=== PATIENT | female | born 1995 | race Caucasian/White ===

== ENCOUNTER 2016-05-30 11:22 | Emergency (ER) | payer OTHER ==
[~2016-05-30] VITALS: Ht 165.1 cm; Wt 77.1 kg
[~2016-05-30 11:22] MED LIST: CFT250 PO; FRRS300 PO; MTH2 PO; MTR600X PO; OXYC5TAB PO; PRENTAB26 PO
[2016-05-30 11:26] VITALS: TEMP 36.9; Ht 165.1 cm; Wt 77.1 kg
[2016-05-30 12:05] LABS: BASO % 0.2 %; BASO ABS # 0.02 K/uL (0-0.2); COMPLETE YES; EOS % 2.6 %; HEMATOCRIT 36.2 % (37-47); IG% 0.1 %; LYMPH % 29.9 %; LYMPH ABS # 2.55 K/uL (1.2-3.4); MEAN CELL VOLUME 73.3 fL (80-100); MEAN CORPUSCULAR HEMOGLOBIN 23.9 pg (25-34); MEAN CORPUSCULAR HGB CONC 32.6 g/dl (32-36); MEAN PLATELET VOLUME 9.9 fL (7.4-10.4); MONO % 6.5 %; NEUT % 60.7 %; PLATELET COUNT 346 K/uL (130-400); RED BLOOD COUNT 4.94 M/uL (4.2-5.4); WHITE BLOOD COUNT 8.52 K/uL (4.8-10.8)
[2016-05-30 12:14] LABS: INR 0.9 (0.9-1.1); PARTIAL THROMBOPLASTIN RATIO 1.2
[2016-05-30 12:22] LABS: BUN/CREATININE RATIO 18.6 (10-20); CALCIUM 8.4 mg/dl (8.5-10.1); CREATININE 0.7 mg/dl (0.60-1.20); POTASSIUM 3.9 mmol/L (3.5-5.1)
[2016-05-30 12:25] LABS: ALB/GLOB RATIO 0.9 (0.9-2)
[2016-05-30] MEDS ORDERED: SODIUM CHLORIDE 0.9% 1000ML 1,000 ML IV STA (12:25)
[2016-05-30] MEDS ORDERED: KETOROLAC TROMETHAMINE 30 MG/ML VIAL IV STA (12:25)
[2016-05-30] MEDS ORDERED: HYDROmorphone INJ 1 MG/ML SYR IV STA (12:25)
[2016-05-30] MEDS ORDERED: ONDANSETRON INJ 2 MG/ML 2 ML VIAL IV STA (12:25)
--- NOTE | 2016-05-30 12:26 | EMERGENCY ROOM VISIT NOTE ---
History Report prepared by Jn: Wayne Monk Under the Supervision of: Dr. Cornelius Amaya M.D. First contact with patient: 11:29 Chief Complaint: ED VAG BLEEDING Stated Complaint: MENSTRUAL History of Present Illness The patient is a 20 year old female who presents to the Emergency Room with complaints of worsening vaginal bleeding starting about 24 hours ago. She currently also complains of bilateral lower abdominal pain. She has taken Tylenol without relief. The patient had a and then a uterine artery embolism repair surgery in February. Her first period since the was in the beginning of May which was normal. About 24 hours ago, she started having a brown discharge. This morning, she started having vaginal bleeding which worsened over time. The blood is bright red. Today, she passed a golf- sized clot. She has been changing her pad every 2 hours. She denies chest pain, shortness of breath, or any other complaints. Source of History: patient Onset: about 24 hours ago Position: other (global) Quality: other (vaginal bleeding) Timing: worsening Modifying Factors (Relieving): tylenol (without relief) Associated Symptoms: + abdominal pain, No SOB, No chest pain Review of Systems See HPI for pertinent positives & negatives. A total of 10 systems reviewed and were otherwise negative. Past Medical & Surgical Medical Problems: (1) Acute blood loss as cause of postoperative anemia (2) LUMBAGO (3) possible labor at term (4) TOBACCO USE DISORDER Surgical Problems: (1) S/P section Family History Diabetes mellitus Kidney disease Kidney stones Seizures Thromboembolic disease Social History Smoking Status: Current Every Day Smoker Alcohol Use: none Drug Use: none Marital Status: single Occupation Status: unemployed Current/Historical Medications Scheduled PRN Oxycodone/Acetaminophen 5MG/325MG (Percocet 5MG/325MG), 1-2 TAB PO Q4H PRN for Pain Allergies Coded Allergies: Amoxicillin (Verified Allergy, Mild, RASH, 05/30/16) Fentanyl (Verified Allergy, Unknown, ., 05/30/16) Physical Exam Vital Signs Date Time Temp Pulse Resp B/P Pulse Ox O2 Delivery O2 Flow Rate FiO2 05/30/16 14:40 87 18 104/89 99 05/30/16 13:52 81 18 104/91 99 Room Air 05/30/16 12:20 71 18 102/63 99 Room Air 05/30/16 11:26 36.9 89 18 118/77 99 Room Air Physical Exam GENERAL: Patient is a healthy-appearing well-nourished HEAD: Normocephalic atraumatic EYES: Ocular movements intact pupils equal and react to light OROPHARYNX mucous membranes are moist no exudates present no erythema or edema present NECK: Supple no nuchal rigidity CHEST: Good equal expansion LUNGS: Clear and equal to auscultation CARDIAC: Normal S1 and S2 ABDOMEN: Soft nontender no guarding PELVIC EXAM: Minor amount of blood in the vaginal vault which appeared to be a clot. There is no chandeliers sign. BACK: No CVA tenderness EXTREMITIES: No pain upon palpation normal muscle strength in all groups no clubbing cyanosis or edema NEURO: Patient is following commands is answering questions appropriately. Alert and oriented x3 Cranial Nerves 2-12 grossly intact Medical Decision & Procedures ER Provider Diagnostic Interpretation: US results as stated below per my review and radiologist interpretation: EXAMINATION: PELVIC ULTRASOUND (transabdominal and endovaginal scanning) CLINICAL HISTORY: Diffuse pelvic pain COMPARISON STUDY: February 06, 2016 CT scan FINDINGS: The uterus measured 9.6 x 5.8 x 4.5 cm. The endometrial stripe measured 8 mm. The right ovary measured 36 x 29 x 23 mm. The left ovary measured 30 x 24 x 20 mm. There is no ultrasonographic evidence of ovarian torsion. It should be noted that ovarian torsion can be present with normal Doppler ultrasonographic findings. There is a small amount of free pelvic fluid, likely physiologic. IMPRESSION: 1. No ovarian or uterine masses identified 2. Small amount of free pelvic fluid likely physiologic Electronically signed by: Wilber Mcdowell M.D. 05/30/2016 2:04 PM Dictated Date/Time: 05/30/2016 2:03 PM Laboratory Results 05/30/16 11:45 Red Blood Count 4.94, Mean Corpuscular Volume 73.3, Mean Corpuscular Hemoglobin 23.9, Mean Corpuscular Hemoglobin Concent 32.6, Mean Platelet Volume 9.9, Neutrophils (%) (Auto) 60.7, Lymphocytes (%) (Auto) 29.9, Monocytes (%) (Auto) 6.5, Eosinophils (%) (Auto) 2.6, Basophils (%) (Auto) 0.2, Neutrophils # (Auto) 5.17, Lymphocytes # (Auto) 2.55, Monocytes # (Auto) 0.55, Eosinophils # (Auto) 0.22, Basophils # (Auto) 0.02 05/30/16 11:45 Test 05/30/16 11:40 05/30/16 11:45 05/30/16 12:30 Urine Color CATY Urine Appearance CLOUDY (CLEAR) Urine pH 5.5 (4.5-7.5) Urine Specific [place] 1.023 (1.000-1.030) Urine Protein NEG (NEG) Urine Glucose (UA) NEG (NEG) Urine Ketones NEG (NEG) Urine Occult Blood 3+ (NEG) Urine Nitrite NEG (NEG) Urine Bilirubin NEG (NEG) Urine Urobilinogen NEG (NEG) Urine Leukocyte Esterase TRACE (NEG) Urine WBC (Auto) 1-5 /hpf (0-5) Urine RBC (Auto) >30 /hpf (0-4) Urine Hyaline Casts (Auto) 0 /lpf (0-5) Urine Epithelial Cells (Auto) >30 /lpf (0-5) Urine Bacteria (Auto) NEG (NEG) Urine Test NEG (NEG) White Blood Count 8.52 K/uL (4.8-10.8) Red Blood Count 4.94 M/uL (4.2-5.4) Hemoglobin 11.8 g/dL (12.0-16.0) Hematocrit 36.2 % (37-47) Mean Corpuscular Volume 73.3 fL (80-100) Mean Corpuscular Hemoglobin 23.9 pg (25-34) Mean Corpuscular Hemoglobin Concent 32.6 g/dl (32-36) Platelet Count 346 K/uL (130-400) Mean Platelet Volume 9.9 fL (7.4-10.4) Neutrophils (%) (Auto) 60.7 % Lymphocytes (%) (Auto) 29.9 % Monocytes (%) (Auto) 6.5 % Eosinophils (%) (Auto) 2.6 % Basophils (%) (Auto) 0.2 % Neutrophils # (Auto) 5.17 K/uL (1.4-6.5) Lymphocytes # (Auto) 2.55 K/uL (1.2-3.4) Monocytes # (Auto) 0.55 K/uL (0.11-0.59) Eosinophils # (Auto) 0.22 K/uL (0-0.5) Basophils # (Auto) 0.02 K/uL (0-0.2) RDW Standard Deviation 48.3 fL (36.4-46.3) RDW Coefficient of Variation 18.0 % (11.5-14.5) Immature Granulocyte % (Auto) 0.1 % Immature Granulocyte # (Auto) 0.01 K/uL (0.00-0.02) Prothrombin Time 10.0 SECONDS (9.0-12.0) Prothromb Time International Ratio 0.9 (0.9-1.1) Activated Partial Thromboplast Time 30.6 SECONDS (21.0-31.0) Partial Thromboplastin Ratio 1.2 Anion Gap 8.0 mmol/L (3-11) Est Creatinine Clear Calc Drug Dose 129.4 ml/min Estimated GFR () 142.5 Estimated GFR (Non- 123.0 BUN/Creatinine Ratio 18.6 (10-20) Calcium Level 8.4 mg/dl (8.5-10.1) Total Bilirubin 0.3 mg/dl (0.2-1) Aspartate Amino Transf (AST/SGOT) 16 U/L (15-37) Alanine Aminotransferase (ALT/SGPT) 35 U/L (12-78) Alkaline Phosphatase 66 U/L (45-117) Total Protein 7.4 gm/dl (6.4-8.2) Albumin 3.4 gm/dl (3.4-5.0) Globulin 4.0 gm/dl (2.5-4.0) Albumin/Globulin Ratio 0.9 (0.9-2) Human Chorionic Gonadotropin, Qual NEG (NEG) Date/Time Source Procedure Growth Status 05/30/16 12:31 Cervix Swab Trichomonas Preparation - Final Complete Labs reviewed by ED physician. Medications Administered Medications (Trade) Dose Ordered Sig/Jameel Route Start Time Stop Time Status Last Admin Dose Admin Hydromorphone HCl (Dilaudid Inj) 1 mg NOW STAT IV 05/30/16 12:25 05/30/16 12:26 DC 05/30/16 12:44 1 MG Ketorolac Tromethamine (Toradol Inj) 30 mg NOW STAT IV 05/30/16 12:25 05/30/16 12:26 DC 05/30/16 12:43 30 MG Ondansetron HCl 4 mg 4 mg NOW STAT IV 05/30/16 12:25 05/30/16 12:26 DC 05/30/16 12:43 4 MG Sodium Chloride (Nss 1000ml) 1,000 ml @ 999 mls/hr Q1H1M STAT IV 05/30/16 12:25 05/30/16 13:25 DC 05/30/16 12:44 999 MLS/HR ED Course 1129: Past medical records reviewed. The patient was evaluated in room C05. A complete history and physical examination was performed. 1225: Sodium Chloride 1000 ml @ 999 mls/hr IV, Zofran Inj 4 mg IV, Toradol Inj 30 mg IV, Dilaudid Inj 1 mg IV 1435: Upon reexamination the patient is resting comfortably. I discussed results and treatment plan with the patient. She verbalizes agreement and understanding. The patient is ready for discharge. Medical Decision Differential diagnosis: Etiologies such as ectopic , dysfunction uterine bleeding, bleeding dyscrasia, trauma, infection, as well as others were entertained. This is a 20-year-old female who presents emergency department complaining of pelvic pain. The patient had recent issues with a bleeding artery from a C- section. On pelvic exam the patient has very minor bleeding and some clots present. Cultures were taken of this area. Her hemoglobin appears to be stable. Ultrasound does not show any evidence of torsion. An IV was established, patient given Dilaudid. Repeat examination revealed improvement patient's symptoms. I do believe that the patient is well enough to be discharged home for follow-up with OB. Patient was in agreement with the treatment plan. Impression Primary Impression: Vagina bleeding Scribe Attestation The scribe's documentation has been prepared under my direction and personally reviewed by me in its entirety. I confirm that the note above accurately reflects all work, treatment, procedures, and medical decision making performed by me. Departure Information Dispostion Home / Self-Care Prescriptions Oxycodone/Acetaminophen 5MG/325MG (PERCOCET 5MG/325MG) Tab 1-2 TAB PO Q4H Y for Pain, #14 TAB Prov: Cornelius Amaya MD 05/30/16 Referrals Canan. Gray MD Forms HOME CARE DOCUMENTATION FORM, IMPORTANT VISIT INFORMATION, WORK / SCHOOL INSTRUCTIONS Patient Instructions Bleeding Uterine, My [facility] Additional Instructions Follow up with DR Perez's office You received narcotic or benzodiazepene medication while in the emergency room today. Do not drive, operate heavy machinery, or drink alcohol under the influence of this medication. Take 600 mg Ibuprofen every 6 hours Take Percocet for breakthrough pain You have been examined and treated today on an emergency basis only. This is not a substitute for, or an effort to provide, complete comprehensive medical care. It is impossible to recognize and treat all injuries or illnesses in a single emergency department visit. It is therefore important that you follow up closely with Dr Perez. Call as soon as possible for an appointment. Thank you for your time and consideration. I look forward to speaking with you again soon. Please don't hesitate to call us if you have any questions.
[2016-05-30 12:53] LABS: PREG INTERNAL NEGATIVE QC NEG CLEAR BACKGROUND; PREG INTERNAL POSITIVE QC POS CONTROL LINE
[2016-05-30 13:10] LABS: URINE APPEARANCE CLOUDY (CLEAR); URINE BILIRUBIN NEG (NEG); URINE EPITHELIAL CELL AUTO >30 /lpf (0-5); URINE NITRITE NEG (NEG); URINE PH 5.5 (4.5-7.5); URINE SPECIFIC GRAVITY 1.023 (1.000-1.030); UROBILINOGEN NEG (NEG)
[2016-05-30 13:18] LABS: MANUAL MICROSCOPIC REQUIRED? NO; REVIEW REQ? NO; URINE COLOR AMBER
--- NOTE | 2016-05-30 14:06 | DIAGNOSTIC IMAGING REPORT ---
EXAMINATION: PELVIC ULTRASOUND (transabdominal and endovaginal scanning) CLINICAL HISTORY: Diffuse pelvic pain COMPARISON STUDY: February 06, 2016 CT scan FINDINGS: The uterus measured 9.6 x 5.8 x 4.5 cm. The endometrial stripe measured 8 mm. The right ovary measured 36 x 29 x 23 mm. The left ovary measured 30 x 24 x 20 mm. There is no ultrasonographic evidence of ovarian torsion. It should be noted that ovarian torsion can be present with normal Doppler ultrasonographic findings. There is a small amount of free pelvic fluid, likely physiologic. IMPRESSION: 1. No ovarian or uterine masses identified 2. Small amount of free pelvic fluid likely physiologic Electronically signed by: Wilber Mcdowell M.D. 05/30/2016 2:04 PM Dictated Date/Time: 05/30/2016 2:03 PM
[2016-05-30] MEDS ORDERED: OXYC-57 PO (14:29)
[2016-05-30 14:40] VITALS: BP 104/89; PULSE 87; O2SAT 99
[2016-06-01 14:54] LABS: CHLAMYDIA TRACH RNA*** NOT DETECTED (NOT DETECTED); GC (NEIS GONORRHOEAE)RNA** NOT DETECTED (NOT DETECTED)
== END 2016-05-30 14:42 | disposition home or self-care (01) ==
LOC: C.EDB 11:24 → C.EDC 14:42
DX: N93.9 Abnormal uterine and vaginal bleeding, unspecified (principal); F17.200 Nicotine dependence, unspecified, uncomplicated

== ENCOUNTER 2016-08-12 19:35 | Emergency (ER) | payer OTHER ==
[~2016-08-12] VITALS: Ht 162.6 cm; Wt 81.1 kg
[~2016-08-12 19:35] MED LIST changes: -CFT250 PO; -FRRS300 PO; -MTH2 PO; -MTR600X PO; +OXYC-57 PO; -OXYC5TAB PO; -PRENTAB26 PO
[2016-08-12 19:41] VITALS: TEMP 36.6; Ht 162.6 cm; Wt 81.1 kg
[2016-08-12] MEDS ORDERED: OXYCODONE/ACETAMINOPHEN 5-325 TAB PO ONE (20:15)
--- NOTE | 2016-08-12 20:25 | EMERGENCY ROOM VISIT NOTE ---
ED Visit Note First contact with patient: 19:45 Chief Complaint: Sciatic Pain Going Down LEFT Leg, Inj Back / History of Present Illness: Patient is a 21-year-old female who presents to the emergency department by private vehicle for evaluation of her low back pain with pain and numbness shooting down the LEFT leg. The patient reports a long- standing history of low back pain issues since the age of 12. She has a known herniated disc at L5-S1. She has been seen by multiple specialists in the past. Most recently she was seen by Dr. johnson at pain management at [facility]. She had an injection in her back performed on August 08. This was her first injection. She did have moderate relief of symptoms initially, but reports that over the past few days she's had increasing pain to her low back with some numbness down the LEFT leg. She has reported a history of the same. She denies any loss of control bowel/bladder saddle anesthesia. She reports no weakness in the leg. She denies any fevers or chills. There is been no nausea, vomiting, or abdominal pain. She did try Tylenol without relief of symptoms. She does report that she has had Percocet in the past which has helped her symptoms as well. She reports that her primary care provider "will not treat my chronic pain". The patient rates her current discomfort as a 9/10. She denies any falls or recent trauma to the spine. She denies any chest pain, abdominal pain, hematochezia, melena, hematuria, or dysuria. The patient reports recently restarting her psychiatric medications that she had been taken off of during her . Medications: Reviewed and discussed with the patient. Allergies: Amoxicillin, fentanyl. PMH: As above. SHx: Patient is a 21-year-old female who lives locally. ROS: All pertinent positive and negative review of systems are appropriately documented in the History of Present Illness. Physical Exam: VITAL SIGNS - Vital signs and nursing notes were reviewed. GENERAL - 21-year-old female appearing her stated age and in noticeable discomfort throughout the exam. SKIN - no erythema, warmth to touch, or palpable abscesses appreciated. NECK - FROM of the cervical spine. ABDOMEN - Abdominal contour obese without pulsations or visible masses. BS normoactive all four quadrants. No tenderness, palpable masses, hepatosplenomegaly, or ascites noted. MUSCULOSKELETAL - ROM of the lumbar spine region was limited secondary to patient discomfort. Pt was laying on the exam table. Pt made guarded movements when asked to change position. No step-off deformities were palpated down the thoracolumbar spines. Moderate Tenderness to Palpation experienced at the level of the LEFT sided lumbar paraspinal muscle distribution. No reproducible tenderness to palpation across the iliac spine. NEUROLOGIC - REFLEXES: +3/4 patellar reflexes B/L. SENSORY: Spinothalamic tract was found to be intact with ability to discriminate sharp versus dull sensation at the level of hip joint down do the great toe. No sensory defects of the dorsal column were appreciated utilizing light touch for evaluation. CEREBELLAR: Pt able to perform rapid alternating movements of the feet. EXTREMITIES - Range of Motion - No tremors, ticks, or fasciculations of the lower extremities noticed during inspection. FROM of the lower extremities. No clonus noted with PROM of the lower extremities bilaterally. Pt had +5/5 strength appreciated bilaterally in the lower extremities against examiner's resistance. VASCULAR - Capillary refill of the great toe was brisk. No mottling or blanching of the extremities present. +3/5 dorsalis pedis pulses palpated bilaterally. ED Course: Patient was seen and evaluated by myself. Previous emergency department visit notes were reviewed. I had a lengthy discussion with the patient regarding her symptoms and management. She has no fever. Her exam is not consistent with an acute compressive etiology. I do not feel that further imaging studies are necessary at this point. She is had recent MRI and has seen pain management recently. The patient was provided 1 Percocet for her pain which she reports she has had with success in the past. I do not feel that she warrants anything stronger for pain at this point. The patient was educated on following up with her pain management provider from today's visit. She was educated on worrisome symptoms for return visit to the emergency department. Patient discharged home in good condition. IMPRESSION: Low back pain In the evaluation and treatment of this patient the following differential diagnoses were considered: Cauda equina syndrome, discitis, HNP, sciatica, epidural abscess, psoas abscess, musculoskeletal strain, lumbar fracture, lumbar dislocation, lumbar subluxation, spondylolisthesis, spondylosis, or compression fracture. After discharge, the patient reports that she was frustrated that she only received a pill instead of an injection. In addition, she reports that she is now "feeling funny". The patient admits to taking her Effexor, Adderall, and Klonopin at approximately 3 PM prior to arrival. She wonders if this could be causing her symptoms. The patient is able to converse completely. She has no focal neurological deficits. Her exam was repeated and found to be unremarkable. I did explain to the patient that she is likely feeling the cumulative effects of her Klonopin in addition to the Percocet. She was monitored on pulse ox and had no drop in her pulse ox throughout her stay. She was provided prednisone and naproxen for her symptoms. It was explained that she would not be receiving any further pain medication. She was watched in the emergency department and eventually reports that she felt much better. She reports that she has no pain at this time. She emulate out of the emergency department without the need for assistance. Patient discharged home in good condition. Impression: Acute Exacerbation of Chronic Low Back Pain with LEFT Sided Sciatica Discharge Instructions: You have been treated in the Emergency Department for Back Pain. You have received pain medicine in the emergency department which impairs your ability to operate a vehicle. It is illegal for you to drive after receiving these medicines. Continue to follow up with your specialist for continued management of her chronic pain. For pain control, you can use the following [id number] medicines (if >12 yo): - Regular strength (325mg/tab) Tylenol (acetaminophen) 2 tabs every 4-6 hours as needed. Do not exceed 12 tablets in a 24 hour period. Avoid taking more than 4 grams (4000 mg) of Tylenol per day. This includes any other sources of acetaminophen you may take on a regular basis. - Regular strength (200 mg/tab) Advil (ibuprofen) 1-2 tabs every 4-6 hours as needed. Do not exceed a dose of 3200 mg per day. If this is an acute injury, ice can be applied to the area of pain for the first 3 days to help decrease pain and inflammation. After the first 3 days, a heating pad can be used over the area for continued soothing relief. You should schedule a follow-up appointment in 2-3 days with your Primary Care Provider for further evaluation and treatment of your back pain. Return to the Emergency Department if your current symptoms worsen despite treatment course outlined above, or if you develop any of the following symptoms : intractable pain despite aforementioned treatment course, loss of control of your bowel or bladder, numbness or tingling in your groin, or development of a fever. Problem List Medical Problems: (1) LUMBAGO Status: Chronic (2) TOBACCO USE DISORDER Status: Chronic Current/Historical Medications Scheduled Amphetamine-Dextroamphetamine 30MG (Adderall 30MG), 15 MG PO BID Clonazepam (Klonopin), 0.5 MG PO BID Naproxen (Naprosyn), 500 MG PO BID Prednisone (Prednisone), 40 MG PO DAILY Venlafaxine Hcl (Effexor Extended Rel), 75 MG PO DAILY Allergies Coded Allergies: Amoxicillin (Verified Allergy, Mild, RASH, 05/30/16) Fentanyl (Verified Allergy, Unknown, ., 05/30/16) Vital Signs Date Time Temp Pulse Resp B/P Pulse Ox O2 Delivery O2 Flow Rate FiO2 08/12/16 21:15 73 16 109/79 99 Room Air 08/12/16 19:41 36.6 98 18 119/78 98 Room Air Medications Administered Medications (Trade) Dose Ordered Sig/Jameel Route Start Time Stop Time Status Last Admin Dose Admin Oxycodone/ Acetaminophen (Percocet 5-325mg Tab) 1 tab NOW ONCE PO 08/12/16 20:15 08/12/16 20:16 DC 08/12/16 20:15 1 TAB Prednisone (PredniSONE TAB) 60 mg NOW STAT PO 08/12/16 21:01 08/12/16 21:02 DC 08/12/16 21:11 60 MG Naproxen (Naprosyn Tab) 500 mg NOW STAT PO 08/12/16 21:01 08/12/16 21:02 DC 08/12/16 21:11 500 MG Departure Information Impression Primary Impression: Acute exacerbation of chronic low back pain Dispostion Home / Self-Care Condition GOOD Prescriptions Prednisone (Prednisone) 20 Mg Tab 40 MG PO DAILY for 4 Days, #8 TAB Prov: Horace Alaniz PA-C 08/12/16 Naproxen (Naprosyn) 500 Mg Tab 500 MG PO BID for 7 Days, #14 TAB Prov: Horace Alaniz PA-C 08/12/16 Referrals Sherif Carlisle M.D. (PCP) Patient Instructions My [facility] Additional Instructions You have been treated in the Emergency Department for Back Pain. You have received pain medicine in the emergency department which impairs your ability to operate a vehicle. It is illegal for you to drive after receiving these medicines. Continue to follow up with your specialist for continued management of her chronic pain. For pain control, you can use the following [id number] medicines (if >12 yo): - Regular strength (325mg/tab) Tylenol (acetaminophen) 2 tabs every 4-6 hours as needed. Do not exceed 12 tablets in a 24 hour period. Avoid taking more than 4 grams (4000 mg) of Tylenol per day. This includes any other sources of acetaminophen you may take on a regular basis. - Regular strength (200 mg/tab) Advil (ibuprofen) 1-2 tabs every 4-6 hours as needed. Do not exceed a dose of 3200 mg per day. If this is an acute injury, ice can be applied to the area of pain for the first 3 days to help decrease pain and inflammation. After the first 3 days, a heating pad can be used over the area for continued soothing relief. You should schedule a follow-up appointment in 2-3 days with your Primary Care Provider for further evaluation and treatment of your back pain. Return to the Emergency Department if your current symptoms worsen despite treatment course outlined above, or if you develop any of the following symptoms : intractable pain despite aforementioned treatment course, loss of control of your bowel or bladder, numbness or tingling in your groin, or development of a fever.
[2016-08-12] MEDS ORDERED: EFFSR75 PO (20:39)
[2016-08-12] MEDS ORDERED: CLON0.5T3 PO (20:40)
[2016-08-12] MEDS ORDERED: AMPH30TA2 PO (20:41)
[2016-08-12] MEDS ORDERED: NAPROXEN 250 MG TAB PO STA (21:01)
[2016-08-12] MEDS ORDERED: PRED20TA PO (21:05)
[2016-08-12] MEDS ORDERED: NAPR-1169 PO (21:05)
[2016-08-12 21:15] VITALS: BP 109/79; PULSE 73; O2SAT 99
== END 2016-08-12 21:50 | disposition home or self-care (01) ==
LOC: C.EDB 19:37 → C.EDD 21:50
DX: M51.17 Intervertebral disc disorders with radiculopathy, lumbosacral region (principal); G89.29 Other chronic pain; F17.200 Nicotine dependence, unspecified, uncomplicated; Z79.899 Other long term (current) drug therapy

== ENCOUNTER 2016-12-19 06:59 | Inpatient (IN) | payer OTHER ==
[~2016-12-19] VITALS: Ht 165.1 cm; Wt 73.0 kg
[~2016-12-19 06:59] MED LIST changes: +AMPH30TA2 PO; +CLON0.5T3 PO; +EFFSR75 PO; -OXYC-57 PO
[2016-12-19 07:24] VITALS: Ht 165.1 cm; Wt 73.0 kg
[2016-12-19] MEDS ORDERED: MISOPROSTOL 200 MCG TAB PO SCH ×3 (08:00→14:00)
[2016-12-19 08:15] LABS: HEMATOCRIT 35.5 % (37-47); MEAN CELL VOLUME 82.4 fL (80-100); MEAN CORPUSCULAR HEMOGLOBIN 28.5 pg (25-34); MEAN CORPUSCULAR HGB CONC 34.6 g/dl (32-36); MEAN PLATELET VOLUME 10.1 fL (7.4-10.4); PLATELET COUNT 297 K/uL (130-400); RED BLOOD COUNT 4.31 M/uL (4.2-5.4)
[2016-12-19 08:26] LABS: ESTIMATED AVERAGE GLUCOSE 97 mg/dl; HA1C FLAG Normal (Normal)
[2016-12-19 08:38] LABS: INR 0.9 (0.9-1.1); PARTIAL THROMBOPLASTIN RATIO 1.2
[2016-12-19 08:39] LABS: ALT/SGPT 11 U/L (12-78); BLOOD UREA NITROGEN 5 mg/dl (7-18); BUN/CREATININE RATIO 8.7 (10-20); CALCIUM 8.2 mg/dl (8.5-10.1); CARBON DIOXIDE 26 mmol/L (21-32); CHLORIDE 106 mmol/L (98-107); CREATININE 0.55 mg/dl (0.60-1.20); GLUCOSE 69 mg/dl (70-99); POTASSIUM 3.3 mmol/L (3.5-5.1); SODIUM 138 mmol/L (136-145)
[2016-12-19 08:49] LABS: ALB/GLOB RATIO 0.6 (0.9-2); ALKALINE PHOSPHATASE 69 U/L (45-117); AST/SGOT 9 U/L (15-37)
[2016-12-19 10:02] LABS: BENZODIAZEPINE, URINE NEG (NEG); COCAINE,URINE NEG (NEG); PHENCYCLIDINE, URINE NEG (NEG)
[2016-12-19] MEDS: MISOPROSTOL 200 MCG TAB PO SCH ×4 (11:08→23:00)
--- NOTE | 2016-12-19 11:19 | HISTORY & PHYSICAL EXAMINATION ---
DATE OF ADMISSION: 12/19/2016 CHIEF COMPLAINT: demise at 20 weeks' gestation. HISTORY OF PRESENT ILLNESS: This is a 21-year-old G3, P2, due date 05/07/2017 making her 20 weeks and 1 day today who is here for labor and delivery for labor induction because of demise. The patient was seen at maternal medicine because of history of uterine artery embolization. Ultrasound done on that day showed demise. She is scheduled for induction today. On arrival to labor and delivery, she had no shortness of breath, no chills, no fever. Bedside ultrasound shows no cardiac activity. Fetus is in cephalic presentation. PAST MEDICAL HISTORY: 1. History of adjustment disorder with depressed mood. 2. History of PTSD. 3. History of anxiety. 4. History of multiple personality disorder. 5. History of herniated disc. PAST SURGICAL HISTORY: 1. Dental surgery. 2. on January 2016. 3. Uterine embolization in February 2016. SOCIAL HISTORY: The patient is a smoker. Denies drug or alcohol use. FAMILY HISTORY: Noncontributory. LADDERMAN HISTORY: The patient has had 1 vaginal delivery in 2010. Second delivery was a in 2015. PHYSICAL EXAMINATION: GENERAL: Well-developed, well-nourished white female in no acute distress. HEART: S1, S2, regular rhythm and rate. LUNGS: Clear to auscultation bilaterally. ABDOMEN: Nontender, nondistended, gravid. Fundal height is 20 cm. PELVIC EXAMINATION: The patient's cervix is closed, thick, and posterior. EXTREMITIES: No cyanosis, clubbing or edema. ASSESSMENT AND PLAN: A 21-year-old G3, P2 at 20 weeks and 1 day with demise, history of previous section, low transverse. The patient is here for induction. I have discussed with the patient drugs that can be used for induction of labor. We discussed the use of Cytotec in view of her history of prior section. We discussed the risks of possible uterine rupture, risks are anywhere from 0.4% to 1%. We have discussed some of the comorbidities that include previous being only 11 months ago. We have also discussed risk of retained placenta as well as the risk of surgery incase any of these complications occur The patient has agreed to proceed with induction. YANA
[2016-12-19] MEDS: LACTATED RINGER'S 1000ML 1,000 ML IV SCH ×2 (13:29→17:44)
[2016-12-19] MEDS: BUTORPHANOL TARTRATE 1 MG/ML VIAL IV PRN ×2 (16:25→19:29)
[2016-12-19] MEDS ORDERED: BUTORPHANOL TARTRATE 1 MG/ML VIAL IV PRN (19:15)
[2016-12-20] MEDS ORDERED: BUTORPHANOL TARTRATE 1 MG/ML VIAL IV PRN ×2 (01:00→06:15)
[2016-12-20] MEDS: LACTATED RINGER'S 1000ML 1,000 ML IV SCH ×3 (01:52→12:46)
[2016-12-20] MEDS: MISOPROSTOL 200 MCG TAB PO SCH ×3 (03:00→11:00)
[2016-12-20] MEDS ORDERED: FENTANYL 2MCG/ML ROPIV 1.25MG/ML 100ML BAG EPI ONE (07:30)
[2016-12-20] MEDS ORDERED: BUPIVACAINE 0.25% 30 ML VIAL ONE (07:30)
[2016-12-20] MEDS ORDERED: EpHEDrine SULFATE INJ 50 MG/ML AMP ONE (07:30)
[2016-12-20] MEDS ORDERED: FENTANYL CITRATE INJ 50 MCG/1 ML 2 ML VIAL ONE (07:30)
[2016-12-20 08:42] LABS: HEMATOCRIT 36.5 % (37-47); MEAN CELL VOLUME 83.3 fL (80-100); MEAN CORPUSCULAR HEMOGLOBIN 28.1 pg (25-34); MEAN PLATELET VOLUME 10.4 fL (7.4-10.4); PLATELET COUNT 291 K/uL (130-400); RED BLOOD COUNT 4.38 M/uL (4.2-5.4); WHITE BLOOD COUNT 10.71 K/uL (4.8-10.8)
[2016-12-20 08:49] LABS: MEAN CORPUSCULAR HGB CONC 33.7 g/dl (32-36)
[2016-12-20 08:52] LABS: INR 0.9 (0.9-1.1); PARTIAL THROMBOPLASTIN RATIO 1.2; PROTHROMBIN TIME (PATIENT) 10.1 SECONDS (9.0-12.0)
[2016-12-20] MEDS ORDERED: NALOXONE HCL INJ 1 MG in SODIUM CHLORIDE 0.9% 1000ML 1,000 ML IV PRN (09:49)
[2016-12-20] MEDS ORDERED: LACTATED RINGER'S 1000ML 500 ML IV PRN (09:49)
[2016-12-20] MEDS ORDERED: ONDANSETRON INJ 2 MG/ML 2 ML VIAL IV PRN (10:00)
[2016-12-20] MEDS ORDERED: EpHEDrine SULFATE INJ 50 MG/ML AMP IV PRN (10:00)
[2016-12-20] MEDS ORDERED: NALOXONE HCL INJ 0.4 MG/1 ML VIAL/CARP IV PRN (10:00)
[2016-12-20] MEDS ORDERED: NALBUPHINE HCL INJ 10 MG/ML AMP IV PRN (10:00)
[2016-12-20] MEDS ORDERED: FENTANYL 2MCG/ML ROPIV 1.25MG/ML 100ML BAG EPI PRN (10:00)
[2016-12-20] MEDS ORDERED: DiphenhydrAMINE HCL 50 MG/ML VIAL IV PRN (10:00)
[2016-12-20] MEDS ORDERED: MISOPROSTOL 200 MCG TAB PV ONE (13:30)
[2016-12-20] MEDS ORDERED: LACTATED RINGER'S 1000ML 1,000 ML IV SCH (17:08)
[2016-12-20] MEDS ORDERED: OXYTOCIN 30 UNITS/500ML NSS IV ONE (17:09)
[2016-12-20] MEDS ORDERED: DIPHTHERIA/TETANUS/PERTUSSIS 0.5 ML SYR/VIAL IM. ONE (17:15)
[2016-12-20] MEDS ORDERED: SUPERCREAM 0.870 % 15GM JAR EXT PRN (17:15)
[2016-12-20] MEDS ORDERED: LANOLIN OINT EXT PRN ×2 (17:15)
[2016-12-20] MEDS ORDERED: ACETAMINOPHEN/CODEINE 300/30MG TAB PO PRN ×2 (17:15)
[2016-12-20] MEDS ORDERED: MEASLES, MUMPS & RUBELLA VIRUS VIAL SQ. ONE (17:15)
[2016-12-20] MEDS ORDERED: OXYTOCIN 30 UNITS/500ML NSS IV PRN (17:15)
[2016-12-20] MEDS ORDERED: BENZOCAINE 20% AER SPR 82.5 GM CAN EXT PRN (17:15)
[2016-12-20] MEDS ORDERED: IBUPROFEN 600 MG TAB PO PRN (17:15)
[2016-12-20] MEDS ORDERED: HYDROCORTISONE ACETATE 25 MG SUPP PR PRN (17:15)
[2016-12-20] MEDS ORDERED: OXYCODONE/ACETAMINOPHEN 5-325 TAB PO PRN (17:15)
[2016-12-20] MEDS ORDERED: VARICELLA VIRUS VACCINE LIVE 1 VIAL SQ. ONE (17:15)
[2016-12-20] MEDS ORDERED: ACETAMINOPHEN 325 MG TAB PO PRN (17:15)
--- NOTE | 2016-12-20 17:18 | Vaginal Delivery Summary ---
Vaginal Delivery Summary Delivery Note Patient delivered demise in complete sac including placenta. Fetus appears to be male with possible cystic hygroma of neck region noted. Placenta is intact. No vaginal tears. EBL 100 ml. Final sponge and instrument count are correct. Mom stable. Mom requesting genetic studies and is requesting autopsy to be done. Placenta for exam.
--- NOTE | 2016-12-20 17:49 | Anesthesia Procedure Note ---
Anesthesia Epidural Removal Nt Date & Time Dec 20, 2016 at 17:49 Vital Signs Pain Intensity: 0.0 Notes Mental Status: alert / awake / arousable, participated in evaluation Nausea / Vomiting: adequately controlled Pain: adequately controlled Airway Patency, RR, SpO2: stable & adequate BP & HR: stable & adequate Hydration State: stable & adequate Neuraxial Anesthesia: was administered Anesthetic Complications: no major complications apparent, pt satisfied with anesthetic care Epidural: removed without complications, with tip intact
[2016-12-20] MEDS ORDERED: DOCUSATE SODIUM 100 MG CAP PO SCH (20:00)
[2016-12-20] MEDS ORDERED: MTR600X PO (21:05)
[2016-12-21] MEDS ORDERED: FERROUS SULFATE 325 MG TAB PO SCH (08:00)
[2016-12-21] MEDS ORDERED: PRENATAL VITAMIN TAB PO SCH (08:00)
[2016-12-21] MEDS ORDERED: BISACODYL 5 MG TABEC PO SCH (20:00)
[2016-12-22] MEDS ORDERED: BISACODYL 10 MG SUPP PR PRN (07:00)
[2016-12-26 19:39] LABS: HSV1 AB IGM Negative (Negative); HSV2 AB IGM Negative (Negative); TOXOPLASMA GONDII IGM <8.00 AU/mL (<8.00)
== END 2016-12-20 21:40 | disposition home or self-care (01) | DRG 775 ==
LOC: C.LD 06:59
PROVIDERS: ADMIT Obstetrics & Gynecology; ATTEND Obstetrics & Gynecology
PROC: 10E0XZZ Delivery of Products of Conception, External Approach (ICD-10-PCS; principal; 2016-12-20)
DX: O36.4XX0 Maternal care for intrauterine death, not applicable or unspecified (principal); Z3A.20 20 weeks gestation of pregnancy; Z37.1 Single stillbirth